=== PATIENT | male | born 1975 | race Caucasian/White ===

== ENCOUNTER 2018-01-25 23:17 | Emergency (ER) | payer BC ==
[2018-01-25 23:34] VITALS: RESP 18; TEMP 98
--- NOTE | 2018-01-26 01:22 | US ---
EXAMINATION TYPE: US venous doppler duplex LE LT DATE OF EXAM: 01/26/2018 12:48 AM COMPARISON: NONE CLINICAL HISTORY: Pain. Left leg pain SIDE PERFORMED: Left TECHNIQUE: The lower extremity deep venous system is examined utilizing real time linear array sonog lali with graded compression, doppler sonography and color-flow sonography. VESSELS IMAGED: External Iliac Vein (EIV) Common Femoral Vein Deep Femoral Vein Greater Saphenous Vein * Femoral Vein Popliteal Vein Small Saphenous Vein * Proximal Calf Veins (* superficial vessels) Left Leg: Negative for DVT No evidence of DVT left leg. IMPRESSION: No evidence of deep venous thrombosis in the left leg. Normal exam.
--- NOTE | 2018-01-26 01:51 | ED ---
Extremity Problem HPI - General Chief complaint: Extremity Problem,Nontraumatic Stated complaint: leg pain Time Seen by Provider: 01/26/18 00:23 Source: patient Mode of arrival: ambulatory Limitations: no limitations - History of Present Illness Initial comments: 42-year-old male patient presents to the emergency department today for complaints of left calf pain. Patient states that the pain started approximately 6 days ago after doing some yard work. Patient states that 2 weeks ago he did take a long car trip to the [facility] for camping. Patient states that he was driving for 5-6 hours at a time. Patient denies any swelling or redness to the calf or leg. Patient states he was reading online and he was concerned he may have a blood clot in his leg. Patient denies any numbness or tingling to the leg or foot. Denies any fevers or chills. Denies any history of injury to the leg. Denies any history of blood clots or bleeding disorders. Patient denies any recent rash, shortness breath, chest pain, abdominal pain, nausea, vomiting, diarrhea, constipation, back pain, dizziness, weakness, hematuria, dysuria, urinary urgency, urinary frequency, headache, visual changes, or any other complaints. - Related Data Home Medications Medication Instructions Recorded Confirmed Multivitamin [Men's Multi-Vitamin] 1 tab PO DAILY 01/24/16 01/24/16 Grants-3 Fatty Acids/Fish Oil [Fish 1 cap PO DAILY 01/24/16 01/24/16 Oil 1,000 mg Softgel] Previous Rx's Medication Instructions Recorded Cephalexin [Keflex] 500 mg PO Q6HR #40 cap 01/24/16 Allergies Allergy/AdvReac Type Severity Reaction Status Date / Time Penicillins Allergy Rash/Hives Verified 01/25/18 23:34 Review of Systems ROS Statement: Those systems with pertinent positive or pertinent negative responses have been documented in the HPI. ROS Other: All systems not noted in ROS Statement are negative. Past Medical History Past Medical History: No Reported History History of Any Multi-Drug Resistant Organisms: None Reported Past Surgical History: No Surgical Hx Reported Past Psychological History: No Psychological Hx Reported Smoking Status: Never smoker Past Alcohol Use History: Occasional Past Drug Use History: None Reported General Exam Limitations: no limitations General appearance: alert, in no apparent distress, other (This is a well- developed, well-nourished adult male patient in no acute distress. Vital signs upon presentation are temperature 98.2F, pulse 57, respirations 18, blood pressure 130/81, pulse ox 98% on room air.) Eye exam: Present: normal appearance, PERRL, EOMI. Absent: scleral icterus, conjunctival injection, periorbital swelling ENT exam: Present: normal exam, normal oropharynx, mucous membranes moist Respiratory exam: Present: normal lung sounds bilaterally. Absent: respiratory distress, wheezes, rales, rhonchi, stridor Cardiovascular Exam: Present: regular rate, normal rhythm, normal heart sounds. Absent: systolic murmur, diastolic murmur, rubs, gallop, clicks Extremities exam: Present: normal inspection, full ROM, normal capillary refill , calf tenderness (Left), other (Skin to the left lower extremity is pink, warm , and dry. Cap refills less than 3 seconds. Pedal and posttibial pulses are 2 + and equal bilaterally. There is no swelling or erythema noted.). Absent: tenderness, pedal edema, joint swelling Neurological exam: Present: alert, oriented X3, CN II-XII intact Psychiatric exam: Present: normal affect, normal mood Skin exam: Present: warm, dry, intact, normal color. Absent: rash Course Vital Signs 01/25/18 01/26/18 23:31 02:13 Temperature 98.0 F 98.0 F Pulse Rate 57 L 60 Respiratory 18 18 Rate Blood Pressure 130/81 127/89 O2 Sat by Pulse 98 97 Oximetry Medical Decision Making - Medical Decision Making 42-year-old male patient presents to the emergency department today for evaluation of left calf pain. Physical examination is relatively unremarkable, calf is soft with no redness or erythema noted. Leg is neurovascularly intact. We did perform ultrasound which was negative for any evidence of DVT. Patient was instructed to increase fluids. Instructed to follow-up with his primary care physician for recheck in 1-2 days. He is instructed to take Her Profen for pain control. Return parameters discussed in detail. He verbalizes understanding and agrees with this plan. Disposition Clinical Impression: Strain of calf muscle Narrative: Left Disposition: HOME SELF-CARE Condition: Good Instructions: Muscle Strain (ED) Additional Instructions: Apply warm moist heat to the left calf. Perform Stretching. Follow-up with your primary care physician for recheck in 1-2 days. Continue taking ibuprofen for pain control. Return here immediately for any new, worsening, or concerning symptoms. Is patient prescribed a controlled substance at d/c from ED?: No Referrals: Adri Horan MD [Primary Care Provider] - 1-2 days Time of Disposition: 01:51
[2018-01-26 02:14] VITALS: BP 127/89; PULSE 60
== END 2018-01-26 02:14 | disposition home or self-care (01) ==
LOC: EC 23:17
DX: S86.912A Strain of unspecified muscle(s) and tendon(s) at lower leg level, left leg, initial encounter (principal); Z79.899 Other long term (current) drug therapy; Z88.0 Allergy status to penicillin
CPT/HCPCS: 99283

== ENCOUNTER → 2024-12-13 | Outpatient (CLI) | payer SELFPAY ==
[2024-12-13 10:30] LABS: HCT 39.3 % (39.6-50.0); HGB 11.7 g/dL (13.0-17.0); MCH 22.0 pg (27.0-32.0); MCHC 29.8 g/dL (32.0-37.0); MCV 73.9 FL (80.0-97.0); NRBC Per 100 WBC 0 X 10*3/uL (0.00-0.01); Platelet Count 290 X 10*3/uL (140-440); RBC 5.32 X 10*6/uL (4.40-5.60); RDW 16.5 % (11.5-14.5); WBC 5.39 X 10*3/uL (4.50-10.00)
[2024-12-13 10:47] LABS: ALT 30 U/L (10-49); AST 27 U/L (14-35); Albumin 4.3 g/dL (3.8-4.9); Albumin/Globulin Ratio 1.79 Ratio (1.60-3.17); Alkaline Phosphatase 74 U/L (41-126); Anion Gap 7.60 mmol/L (4.00-12.00); BUN/Creat Ratio 12.36 Ratio (12.00-20.00); Blood Urea Nitrogen 13.6 mg/dL (9.0-27.0); Calcium 9.1 mg/dL (8.7-10.3); Carbon Dioxide 28.4 mmol/L (21.6-31.8); Chloride 104 mmol/L (96-109); Cholesterol 242.00 mg/dL (0.00-200.00); Globulin 2.4 g/dL (1.6-3.3); Glucose 101 mg/dL (70-110); HDL Cholesterol 60.70 mg/dL (40.00-60.00); LDL Cholesterol,Calculated 163.1 mg/dL (0.0-131.0); Potassium 4.6 mmol/L (3.5-5.5); Sodium 140 mmol/L (135-145); Total Protein 6.7 g/dL (6.2-8.2); Triglycerides 90.90 mg/dL (0.00-149.00); VLDL Calculation 18.18 mg/dL (5.00-40.00)
[2024-12-13 11:13] LABS: Basophils # (A) 0.04 X 10*3/uL (0.00-0.10); Basophils % (A) 0.7 %; Eosinophils # (A) 0.09 X 10*3/uL (0.04-0.35); Eosinophils % (A) 1.7 %; Immature Grans, Automated 0.20 %; Lymphocytes # (A) 1.75 X 10*3/uL (0.90-5.00); Lymphocytes % (A) 32.5 %; Monocytes # (A) 0.47 X 10*3/uL (0.20-1.00); Monocytes % (A) 8.7 %; Neutrophils # (A) 3.03 X 10*3/uL (1.80-7.70); Neutrophils % (A) 56.2 %
== END | disposition home or self-care (01) ==
LOC: LABWHC1 07:09
PROVIDERS: ATTEND Family Medicine
DX: Z00.00 Encounter for general adult medical examination without abnormal findings (principal)
CPT/HCPCS: 36415; 80053; 80061; 85025